=== PATIENT | female | born 1965 | race Caucasian/White ===

== ENCOUNTER 2017-08-03 19:44 | Emergency (ER) | payer OTHER ==
[~2017-08-03] VITALS: Ht 167.6 cm; Wt 70.3 kg
[2017-08-03 20:33] LABS: APPEARANCE CLEAR ((CLEAR)); BILIRUBIN NEGATIVE; BLOOD NEGATIVE; COLOR STRAW ((YELLOW)); GLUCOSE (STRIP) NEGATIVE; KETONES NEGATIVE; LEUKOCYTES NEGATIVE; NITRITE NEGATIVE; PROTEIN (STRIP) NEGATIVE; SPECIFIC GRAVITY 1.004 (1.000-1.030); UCUL ADDED? NO; UROBILINOGEN 0.2 MG/DL (0.2-1.0)
[2017-08-03 20:33] LABS: HEMATOCRIT 32.1 % (36.0-46.0); HEMOGLOBIN 11.1 G/DL (11.9-15.5); MCH 31.3 PG (29.0-34.0); MCHC 34.6 G/DL (30.0-36.0); MCV 90.4 FL (83-99); PLATELET COUNT 277 K/uL (156-360); RBC DIS.WIDTH-CV 14.1 % (11.8-14.6); RBC DIS.WIDTH-SD 46.5 % (39-53); RED BLOOD COUNT 3.55 M/uL (3.80-5.20); WHITE BLOOD COUNT 11.3 K/uL (4.1-10.2)
[2017-08-03 20:35] LABS: ALBUMIN 4.3 g/dL (3.2-4.8); CHLORIDE 102 mEq/L (99-109); POTASSIUM 3.8 mEq/L (3.7-5.4); SODIUM 137 mEq/L (136-147)
[2017-08-03 20:37] LABS: GLUCOSE 179 mg/dL (70-99); TOTAL PROTEIN 7.4 g/dL (6.4-8.3)
[2017-08-03 20:39] LABS: TOTAL BILIRUBIN < 0.1 mg/dL (0.0-1.0)
[2017-08-03 20:41] LABS: ALKALINE PHOSPHATASE 104 IU/L (3-129)
[2017-08-03 20:42] LABS: UREA NITROGEN (BUN) 4 mg/dL (9-23)
[2017-08-03 20:43] LABS: AST (GOT) 30 IU/L (2-34)
[2017-08-03 20:44] LABS: ALT (GPT) 31 IU/L (3-49)
[2017-08-03 20:45] LABS: GFR ESTIMATE (CALCULATED) > 59 mL/min/
[2017-08-03] MEDS ORDERED: ZOFRAN4 MG PO (23:26)
[2017-08-03] MEDS ORDERED: PERCOCET 5/31 TABLET PO (23:26)
[2017-08-03 23:39] VITALS: BP 136/95
[2017-08-04] MEDS ORDERED: ERYTHROMYCIN250 M1 PO (12:10)
[2017-08-04] MEDS ORDERED: PROBIOTIC1 EAC1 PO (12:10)
[2017-08-04] MEDS ORDERED: MULTIVITAMIN1 EAC2 PO (12:11)
[2017-08-04] MEDS ORDERED: POTASSIUM-9999 MG PO (12:11)
[2017-08-04] MEDS ORDERED: METFORMIN HCL500 MG PO (12:11)
[2017-08-04] MEDS ORDERED: REQUIP1 MG PO (12:12)
[2017-08-04] MEDS ORDERED: JANUVIA100 MG PO (12:12)
[2017-08-04] MEDS ORDERED: LANTUS 3 M100 UNITS1 SC (12:13)
[2017-08-04] MEDS ORDERED: REGLAN10 MG PO (12:14)
[2017-08-04] MEDS ORDERED: MIRTAZAPINE15 MG PO (12:14)
[2017-08-04] MEDS ORDERED: COLACE100 MG PO (12:14)
[2017-08-04] MEDS ORDERED: THIAMINE HCL250 MG PO (12:14)
[2017-08-04] MEDS ORDERED: ENDOCET 5-3251 EACH PO (12:15)
[2017-08-04] MEDS ORDERED: MAGNESIUM27 MG PO (12:15)
[2017-08-04] MEDS ORDERED: OMEPRAZOLE20 MG PO (12:16)
[2017-08-04] MEDS ORDERED: PROMETHAZINE HC25 M1 PO (12:16)
[2017-08-04] MEDS ORDERED: BRINTELLIX20 MG PO (12:17)
[2017-08-04] MEDS ORDERED: SUPER B-50 COM1 EAC1 PO (12:17)
== END 2017-08-03 23:39 | disposition home or self-care (01) ==
LOC: EME 19:44
DX: K52.9 Noninfective gastroenteritis and colitis, unspecified (principal); K76.0 Fatty (change of) liver, not elsewhere classified; Z93.3 Colostomy status; K58.9 Irritable bowel syndrome, unspecified; K21.9 Gastro-esophageal reflux disease without esophagitis; E11.9 Type 2 diabetes mellitus without complications; E78.5 Hyperlipidemia, unspecified; F41.9 Anxiety disorder, unspecified; F32.9 Major depressive disorder, single episode, unspecified; Z90.49 Acquired absence of other specified parts of digestive tract; F17.200 Nicotine dependence, unspecified, uncomplicated
CPT/HCPCS: 74176; 80053; 81003; 85027; 99281; 99285; J2405; J3010; J7030

== ENCOUNTER 2017-08-07 23:01 | Emergency (ER) | payer OTHER ==
[~2017-08-07] VITALS: Ht 167.6 cm; Wt 69.5 kg
[~2017-08-07 23:01] MED LIST: BRINTELLIX20 MG PO; COLACE100 MG PO; ENDOCET 5-3251 EACH PO; ERYTHROMYCIN250 M1 PO; JANUVIA100 MG PO; LANTUS 3 M100 UNITS1 SC; MAGNESIUM27 MG PO; METFORMIN HCL500 MG PO; MIRTAZAPINE15 MG PO; MULTIVITAMIN1 EAC2 PO; OMEPRAZOLE20 MG PO; PERCOCET 5/31 TABLET PO; POTASSIUM-9999 MG PO; PROBIOTIC1 EAC1 PO; PROMETHAZINE HC25 M1 PO; REGLAN10 MG PO; REQUIP1 MG PO; SUPER B-50 COM1 EAC1 PO; THIAMINE HCL250 MG PO; ZOFRAN4 MG PO
[2017-08-07 23:38] LABS: HEMATOCRIT 33.4 % (36.0-46.0); HEMOGLOBIN 11.4 G/DL (11.9-15.5); MCHC 34.1 G/DL (30.0-36.0); MCV 90.8 FL (83-99); PLATELET COUNT 312 K/uL (156-360); RBC DIS.WIDTH-CV 14.4 % (11.8-14.6); RBC DIS.WIDTH-SD 47.4 % (39-53); RED BLOOD COUNT 3.68 M/uL (3.80-5.20); WHITE BLOOD COUNT 11.8 K/uL (4.1-10.2)
[2017-08-07 23:51] LABS: ALBUMIN 4.4 g/dL (3.2-4.8); CHLORIDE 99 mEq/L (99-109); POTASSIUM 4.1 mEq/L (3.7-5.4); SODIUM 137 mEq/L (136-147)
[2017-08-07 23:54] LABS: GLUCOSE 158 mg/dL (70-99); TOTAL PROTEIN 7.6 g/dL (6.4-8.3)
[2017-08-07 23:56] LABS: TOTAL BILIRUBIN 0.1 mg/dL (0.0-1.0)
[2017-08-07 23:57] LABS: ALKALINE PHOSPHATASE 112 IU/L (3-129); CREATININE 1.1 mg/dL (0.6-1.3); GFR ESTIMATE (CALCULATED) 55 mL/min/
[2017-08-07 23:58] LABS: UREA NITROGEN (BUN) 5 mg/dL (9-23)
[2017-08-07 23:59] LABS: AST (GOT) 20 IU/L (2-34)
[2017-08-08] LABS: ALT (GPT) 28 IU/L (3-49)
[2017-08-08 00:01] LABS: LIPASE 15 U/L (1.0-51.0)
[2017-08-08 00:07] LABS: QUANTITATIVE HCG < 4.0 MIU/ML
[2017-08-08 00:31] LABS: APPEARANCE CLEAR ((CLEAR)); BILIRUBIN NEGATIVE; BLOOD NEGATIVE; COLOR STRAW ((YELLOW)); GLUCOSE (STRIP) NEGATIVE; KETONES NEGATIVE; LEUKOCYTES NEGATIVE; NITRITE NEGATIVE; PROTEIN (STRIP) NEGATIVE; SPECIFIC GRAVITY 1.009 (1.000-1.030); UCUL ADDED? NO; UROBILINOGEN 0.2 MG/DL (0.2-1.0)
[2017-08-08 06:18] VITALS: BP 115/71
== END 2017-08-08 06:22 | disposition home or self-care (01) ==
LOC: EME 23:01
DX: R11.2 Nausea with vomiting, unspecified (principal); R10.84 Generalized abdominal pain; Z90.49 Acquired absence of other specified parts of digestive tract; Z93.3 Colostomy status; K58.9 Irritable bowel syndrome, unspecified; E11.9 Type 2 diabetes mellitus without complications; E78.5 Hyperlipidemia, unspecified; K21.9 Gastro-esophageal reflux disease without esophagitis; F41.9 Anxiety disorder, unspecified; F32.9 Major depressive disorder, single episode, unspecified; F17.200 Nicotine dependence, unspecified, uncomplicated; Z79.4 Long term (current) use of insulin; Z79.84 Long term (current) use of oral hypoglycemic drugs; Z85.9 Personal history of malignant neoplasm, unspecified
CPT/HCPCS: 74177; 80053; 81003; 83690; 84702; 85027; J2270; J2405; J7030